=== PATIENT | female | born 1985 | race Caucasian/White ===

== ENCOUNTER 2016-07-03 12:31 | Outpatient (CLI) | payer OTHER ==
[~2016-07-03] VITALS: Ht 165.1 cm; Wt 81.0 kg
[2016-07-03 12:41] VITALS: Ht 165.1 cm; Wt 81.0 kg
[2016-07-03 12:42] VITALS: BP 107/58
[2016-07-03] MEDS ORDERED: PREN1TAB17 PO (12:44)
--- NOTE | 2016-07-03 13:57 | RADRPT ---
PROCEDURE: US OB biophysical profile. CLINICAL INDICATION: Contractions TECHNIQUE: Multiple sonographic images of the pelvis were obtained. The images were reviewed on a PACS workstation. COMPARISON: No prior studies are available for comparison. FINDINGS: There is a single viable intrauterine gestation. Cardiac activity is present with 125 beats per min yoselin. There is a vertex presentation. The placenta is anterior. There is no evidence of placental abruption. There is a normal amount of amniotic fluid with an SRIKANTH = 12.5 cm. Biophysical profile: movement 2/2 tone 2/2. breathing 2/2 SRIKANTH 2/2 Total 11/28 RPTAT: AA . IMPRESSION: Normal biophysical profile. Normal SRIKANTH. Physician Maren Date Time Electronically viewed and signed by Physician Maren on 07/03/2016 13:57 RA/
[2016-07-03] MEDS ORDERED: TERBUTALINE 1 MG/ML INJ SC ONE (14:30)
--- NOTE | 2016-07-03 15:04 | RADRPT ---
PROCEDURE: US OB. CLINICAL INDICATION: Assess cervical length. TECHNIQUE: Transabdominal and transvaginal views of the pelvis are available for review. COMPARISON: Ultrasound provides physical profile. 07/03/2016. FINDINGS: Single fetus present spur text with positive cardiac and body motion noted. The cervical length is 4.25 cm. The cervical os is closed. heart rate is 134 beats per minute. Anterior grade II placenta. IMPRESSION: 1. There is a single viable fetus is in vertex of the heart rate of 134 beats per minute. 2. Cervical length is 4.25 cm. Physician Antonio Date Time Electronically viewed and signed by Franki King Physician on 07/03/2016 15:04 /
--- NOTE | 2016-07-03 16:25 | TRIAGE ---
OB Triage Datetime Report Generated by CPN: 07/03/2016 16:24 Datetime: 07/03/2016 16:03 Labor Evaluation Frequency: X1 Monitor Mode: External Duration (sec)2399: 60-120 Resting Tone [place]: Relaxed Datetime: 07/03/2016 15:43 Stage of : OB Triage Labor Evaluation Frequency: X1 Monitor Mode: External Duration (sec)2399: 30-50 Heart Rate FHR Baseline Rate: 135 Variability: Moderate 6-25 bpm Accelerations: 15X15 Decelerations: None Category: Category I Pain Presence: None/Denies Pain Type: N/A Datetime: 07/03/2016 15:40 Comments: RN AT BEDSIDE HOLDING US DOWN Datetime: 07/03/2016 14:36 Stage of : OB Triage Datetime: 07/03/2016 13:31 Comments: us at bedside Datetime: 07/03/2016 12:47 Stage of : OB Triage Assessment Type: Triage Maternal Assessment Level of Consciousness: Fully Conscious DTR's/Clonus: DTRs 2+; No Clonus Headache: Denies Blurred Vision: No Respiratory Effort: Unlabored; Regular Rhythm; Equal Expansion Breath Sounds, Left: Clear and Equal Breath Sounds, Right: Clear and Equal Nausea/Vomiting: Denies RUQ Epigastric Pain: Denies Lower Extremities Edema: None Degree: None Upper Extremities Edema: None Degree: None Facial Edema: None Temperature Route: Oral Fall Risk Assessment History of Falling: (0) No Secondary Diagnosis: (0) No Ambulatory Aid: (0) Bedrest/Nurse Assist IV Therapy: (0) No Gait: (0) Normal/Bedrest/Immobile Mental Status: (0) Oriented to Own Ability Fall Score: 0 Fall Risk Score Definition: No Risk: No action required Labor Evaluation Frequency: X2 Monitor Mode: External Duration (sec)2399: 50-60 Resting Tone [place]: Relaxed Heart Rate FHR Baseline Rate: 135 Monitor Mode: External US Variability: Moderate 6-25 bpm Accelerations: 10X10 Decelerations: None Pain Assessment Pain Scale: 0 Pain Presence: None/Denies Pain Type: N/A Datetime: 07/03/2016 12:44 Time of Arrival: 07/03/2016 12:18 EGA: 33.5 Arrived By: Ambulatory Arrived From: Dr. Office Chief Complaint: SENT FROM [facility] FOR CAT ll TRACING EXTENED MONITORING Movement: Present Contractions: Denies/Absent Rupture of Membranes: Denies Vaginal Discharge: Denies Recent Sexual Intercouse: Denies Abdominal Trauma: Not Applicable Patient Complaints: Other Initial Plan: EFM, CALL
== END 2016-07-03 17:25 | disposition home or self-care (01) ==
LOC: OBT 12:31 → L-D 12:32 → OBT 17:25
PROVIDERS: ATTEND Obstetrics & Gynecology
DX: O62.9 Abnormality of forces of labor, unspecified (principal); Z3A.33 33 weeks gestation of pregnancy
CPT/HCPCS: 76817; 76818; J3105; Z7500; G0463